=== PATIENT | female | born 1975 | race Caucasian/White ===

== ENCOUNTER 2018-06-12 16:56 | Emergency (ER) | payer OTHER ==
[~2018-06-12] VITALS: Ht 175.3 cm; Wt 128.4 kg
[2018-06-12] MEDS ORDERED: TOPROL XL100 MG PO (17:14)
[2018-06-12] MEDS ORDERED: SYNTHROID100 MC1 PO (17:14)
[2018-06-12] MEDS ORDERED: NORCO 5-325 TA1 EAC1 PO (18:21)
[2018-06-12 18:30] VITALS: BP 168/84
== END 2018-06-12 18:30 | disposition home or self-care (01) ==
LOC: M.ERS 16:56
DX: M79.81 Nontraumatic hematoma of soft tissue (principal); M71.22 Synovial cyst of popliteal space [Baker], left knee; I10 Essential (primary) hypertension; E07.9 Disorder of thyroid, unspecified; F41.9 Anxiety disorder, unspecified; Z88.1 Allergy status to other antibiotic agents; Z88.2 Allergy status to sulfonamides; Z88.8 Allergy status to other drugs, medicaments and biological substances; F17.210 Nicotine dependence, cigarettes, uncomplicated